=== PATIENT | male | born 1995 | race Hispanic/Latino ===

== ENCOUNTER 2018-01-16 10:24 | Emergency (ER) | payer SELFPAY ==
[2018-01-16 10:53] LABS: #Eosinphils 0.1 thou/uL (0.0-0.7); #Lymphocytes 1.7 thou/uL (1.20-3.40); #Monocytes 0.4 thou/uL (0.11-0.59); #Neutrophils 6.6 thou/uL (1.40-6.50); %Basophils 0.4 % (0.0-1.0); %Eosinophils 1.7 % (0.0-10.0); %Monocytes 4.6 % (0.0-10.0); %Neutrophils 74.4 % (42.0-75.0); Hemoglobin 14.9 g/dL (14.0-18.0); Mean Corpuscular HGB CONC 33.8 g/dL (32.0-36.0); Mean Corpuscular Hemoglobin 31.3 pg (27.0-31.0); Mean Corpuscular Volume 92.7 fl (80.0-94.0); Mean Platelet Volume 9.7 fL (7.4-10.4); Platelet Count 181 thou/uL (130-400); RBC Distribution Width 12.4 % (11.5-14.5); Red Blood Cell (RBC) Count 4.76 mill/uL (4.70-6.10); White Blood Cell (WBC) Count 8.9 thou/uL (4.8-10.8)
[2018-01-16 11:21] LABS: ALT (SGPT) 33 U/L (8-55); AST (SGOT) 21 U/L (5-34); Albumin 4.1 g/dL (3.5-5.0); Alkaline Phosphatase 88 U/L (40-150); Anion Gap 10 mmol/L (10-20); BUN (Urea Nitrogen) 11 mg/dL (8.9-20.6); Bilirubin, Total 0.4 mg/dL (0.2-1.2); Calc. Creatinine Clearance 0 mL/min (70-130); Calcium 9.4 mg/dL (7.8-10.44); Carbon Dioxide 24 mmol/L (22-29); Chloride 106 mmol/L (98-107); Estimated GFR-MDRD Greater than 90; Globulin 2.5 g/dL (2.4-3.5); Glucose 116 mg/dL (70-105); Lipase 23 U/L (8-78); Potassium 3.9 mmol/L (3.5-5.1); Protein, Total 6.6 g/dL (6.0-8.3); Sodium 136 mmol/L (136-145)
== END 2018-01-16 12:02 | disposition home or self-care (01) ==
LOC: ERS 10:24
DX: R10.11 Right upper quadrant pain (principal); L25.9 Unspecified contact dermatitis, unspecified cause; F17.210 Nicotine dependence, cigarettes, uncomplicated
CPT/HCPCS: 36415; 80053; 83690; 85025; 99284

== ENCOUNTER 2018-09-27 07:48 | Day surgery (SDC) | payer BC, SELFPAY ==
[2018-09-27 08:18] LABS: #Lymphocytes 1.1 thou/uL (1.20-3.40); #Monocytes 0.3 thou/uL (0.11-0.59); #Neutrophils 9.2 thou/uL (1.40-6.50); %Basophils 0.2 % (0.0-1.0); %Eosinophils 0.2 % (0.0-10.0); %Lymphocytes 10.7 % (21.0-51.0); %Monocytes 2.4 % (0.0-10.0); %Neutrophils 86.5 % (42.0-75.0); Hemoglobin 15.3 g/dL (14.0-18.0); Mean Corpuscular HGB CONC 34.4 g/dL (32.0-36.0); Mean Platelet Volume 10.2 fL (7.4-10.4); Platelet Count 189 thou/uL (130-400); RBC Distribution Width 12.3 % (11.5-14.5); Red Blood Cell (RBC) Count 4.93 mill/uL (4.70-6.10); White Blood Cell (WBC) Count 10.6 thou/uL (4.8-10.8)
[2018-09-27 08:24] LABS: Bilirubin Negative (Negative); Blood, Urine Negative (Negative); Clarity CLEAR (Clear); Glucose, Urine (Dipstick) Negative (Negative); Leukocyte Negative (Negative); Nitrite Negative (Negative); Protein, Urine (Dipstick) Negative (Neg-Trace); Specific Gravity, Urine 1.016 (1.002-1.036); Urobilinogen 0.2 mg/dL (0.2-1.0)
[2018-09-27] MEDS ORDERED: Ondansetron PF 4 MG/2 ML Vial ONE ×3 (08:33→19:01)
[2018-09-27 08:38] LABS: ALT (SGPT) 31 U/L (8-55); AST (SGOT) 18 U/L (5-34); Albumin 4.1 g/dL (3.5-5.0); Alkaline Phosphatase 80 U/L (40-150); Anion Gap 13 mmol/L (10-20); BUN (Urea Nitrogen) 8 mg/dL (8.9-20.6); Bilirubin, Total 0.6 mg/dL (0.2-1.2); Calc. Creatinine Clearance 0 mL/min (70-130); Carbon Dioxide 24 mmol/L (22-29); Chloride 104 mmol/L (98-107); Estimated GFR-MDRD Greater than 90; Globulin 2.4 g/dL (2.4-3.5); Glucose 129 mg/dL (70-105); Lipase 25 U/L (8-78); Potassium 3.6 mmol/L (3.5-5.1); Protein, Total 6.5 g/dL (6.0-8.3); Sodium 137 mmol/L (136-145)
[2018-09-27] MEDS ORDERED: Piperacillin/Tazobactam 3.375 GM VIAL ONE (09:09)
--- NOTE | 2018-09-27 09:16 | ULT ---
RIGHT UPPER QUADRANT ULTRASOUND: Date: 09/27/18 HISTORY: Abdominal pain. COMPARISON: None. TECHNIQUE: Utilizing a multihertz transducer, sonographic imaging of the right upper quadrant is performed in th e longitudinal and transverse plane. FINDINGS: The head of the pancreas has a normal echotexture. The remainder of the pancreas is obscured by bowel gas. Mildly heterogeneous echotexture of the liver which may be due to hepatic steatosis or hepatocellular disease. Subsequent evaluation for hepatic masses and intrahepatic biliary dilatation is limited. Ri ght hepatic lobe measures 15.7 cm. Within the lumen of the gallbladder, multiple echogenic foci with posterior acoustic shadowing, georgie tible with gallstones. Gallbladder wall thickness is at the upper limits of normal measuring 0.3 cm. There is no pericholecystic fluid. Negative Saha's sign. Main portal vein is patent. Appropriate directional flow. Common bile duct diameter 0.4 cm. Right kidney: Normal cortical echotexture. No hydronephrosis. Right kidney measures 5.6 x 6.9 x 10.8 cm. IMPRESSION: 1. Sonographic evidence of cholelithiasis without definite sonographic evidence of cholecystitis. HI DA scan if clinically indicated. 2. Heterogeneous echotexture of the liver, which is presumed to be due to hepatic steatosis or hepat ocellular disease. Additional imaging if clinically warranted. POS: C
[2018-09-27] MEDS ORDERED: Morphine 4 MG/ML VIAL ONE (10:50)
[2018-09-27] MEDS ORDERED: Morphine 2 MG/ML SYRINGE ONE ×2 (16:44→17:05)
[2018-09-27] MEDS ORDERED: Bupivacaine HCl 0.5%/Epinephrine 1:200,000/PF 30 ml Vial ONE ×2 (17:11→18:15)
[2018-09-27] MEDS ORDERED: Fentanyl 100 MCG/2 ML VIAL ONE ×2 (17:21)
[2018-09-27] MEDS ORDERED: Ketorolac Tromethamine 30 MG/ML VIAL ONE (17:30)
[2018-09-27] MEDS ORDERED: Midazolam HCl 2 mg/2 ml Vial ONE (17:34)
[2018-09-27] MEDS ORDERED: Famotidine/PF 20 mg/2ml Vial ONE (17:34)
[2018-09-27] MEDS ORDERED: Piperacillin/Tazobactam 3.375 GM in Sodium Chloride 0.9% 100 ML IVPB SCH (17:45)
--- NOTE | 2018-09-27 18:12 | HP ---
HISTORY OF PRESENT ILLNESS: Ammon Perales III is a 23-year-old male, , unemployed, lives with his mother, , and child. The patient presented to the emergency room at least on the second occasion for upper abdominal pain. Ultrasound reveals gallstones, normal bile duct caliber. Liver function tests are normal. He is complaining of pain, nausea, epigastric right upper quadrant. ALLERGIES: NONE. TOBACCO: Less than a pack a day. ALCOHOL: Socially. MEDICATIONS: None. PAST SURGICAL HISTORY: Hand surgery. PAST MEDICAL HISTORY: Noncontributory. REVIEW OF SYSTEMS: Noncontributory. PHYSICAL EXAMINATION: VITAL SIGNS: 138 kg, 145/86, 68, 22, 98.7 degrees. HEAD, EARS, EYES, NOSE, AND THROAT: Unremarkable. LUNGS: Clear to auscultation. CARDIAC: Regular rate and rhythm without murmur or gallop. ABDOMEN: Soft. Mild tenderness in the epigastric right upper quadrant. EXTREMITIES: Unremarkable. ASSESSMENT AND PLAN: Cholecystitis and cholelithiasis. Recommend laparoscopic video cholecystectomy. Risks of infection, bleeding, visceral and biliary injury, open procedure discussed. He consents. Job ID: [id number]
[2018-09-27] MEDS ORDERED: Promethazine HCl 25 MG/ML VIAL IM PRN (18:22)
[2018-09-27] MEDS ORDERED: Meperidine HCl/PF 25 MG/ML VIAL SLOW IVP PRN (18:22)
[2018-09-27] MEDS ORDERED: HYDROmorphone 2 MG/ML VIAL SLOW IVP PRN (18:22)
[2018-09-27] MEDS ORDERED: Promethazine HCl 25 MG/ML VIAL SLOW IVP PRN (18:22)
[2018-09-27] MEDS ORDERED: SUGAMMADEX SODIUM 200 MG/2 ML VIAL ONE (18:38)
[2018-09-27] MEDS ORDERED: Glycopyrrolate 0.2 MG/ML 5 ML SYRINGE ONE (19:01)
[2018-09-27] MEDS ORDERED: PROPOFOL 200 MG/20 ML VIAL ONE (19:01)
[2018-09-27] MEDS ORDERED: Lidocaine 1% PF 5 ML VIAL ONE (19:01)
[2018-09-27] MEDS ORDERED: Dexamethasone 20 MG/5 ML VIAL ONE (19:01)
--- NOTE | 2018-09-28 00:39 | OP ---
DATE OF PROCEDURE: 09/27/2018 PREOPERATIVE DIAGNOSIS: Acute cholecystitis, cholelithiasis. POSTOPERATIVE DIAGNOSIS: Acute cholecystitis, cholelithiasis. PROCEDURES PERFORMED: Laparoscopic video cholecystectomy. ANESTHESIA: General, local 0.5% Marcaine with epinephrine 30 mL. DESCRIPTION OF PROCEDURE: The patient was taken to the operating room under general anesthesia, abdomen was prepared with ChloraPrep and draped in routine fashion. Local anesthetic was infiltrated in the skin and subcutaneous tissue at each port site. 0.5% Marcaine with epinephrine was used. Infraumbilical incision was made. Pneumoperitoneum to 15 mmHg was obtained with Veress needle, replaced with a 5 port, and the laparoscope inserted. Right subxiphoid incision was made and 11 port placed, right subcostal incision was made, midclavicular and anterior axillary line, the 5 port was placed. Cystic artery and duct dissected free. Critical view obtained. Cystic artery and duct double clipped proximally and divided. Gallbladder dissected free from liver bed obtaining good hemostasis prior to division of the final peritoneal attachments. Gallbladder and contents removed, submitted to Pathology. Good hemostasis ensured with the cautery. Irrigant and pneumoperitoneum evacuated. All instruments were removed and all skin incisions were approximated with interrupted subdermal 4-0 Monocryl, and [place] glue applied. Job ID: [id number]
== END 2018-09-27 20:30 | disposition home or self-care (01) ==
LOC: ERS 07:48
PROVIDERS: ATTEND Specialist
PROC: 0FT44ZZ Resection of Gallbladder, Percutaneous Endoscopic Approach (ICD-10-PCS; principal; 2018-09-27)
DX: K80.12 Calculus of gallbladder with acute and chronic cholecystitis without obstruction (principal)
CPT/HCPCS: 36415; 76705; 80053; 81003; 83690; 85025; 88304; J0131; J0670; J1100; J1885; J2001; J2250; J2270; J2405; J2543; J2704; J3010; J7050; S0028